=== PATIENT | male | born 1985 | race Caucasian/White ===

== ENCOUNTER 2022-08-04 10:10 | Emergency (ER) | payer OTHER ==
[~2022-08-04] VITALS: Ht 172.7 cm; Wt 102.1 kg
[2022-08-04] MEDS ORDERED: SYNTHROID50 MCG (10:37)
[2022-08-04] MEDS ORDERED: CRESTOR10 MG (10:37)
[2022-08-04] MEDS ORDERED: PROVENTIL HFA6.7 GM IH (12:16)
[2022-08-04] MEDS ORDERED: MUCINEX D ER 11 EACH PO (12:16)
[2022-08-04] MEDS ORDERED: ALBUTEROL2.5 MG/3 M IH (12:16)
[2022-08-04] MEDS ORDERED: FLOVENT HFA12 G1 IH (12:16)
== END 2022-08-04 12:32 | disposition home or self-care (01) ==
LOC: ER 10:10
DX: J06.9 Acute upper respiratory infection, unspecified (principal)